=== PATIENT | female | born 1945 | race Caucasian/White ===

== ENCOUNTER 2017-02-25 08:30 | Inpatient (IN) | payer BC, MEDICARE ==
--- NOTE | 2017-02-25 09:36 | RAD ---
LEFT SHOULDER: Three views: HISTORY: Shoulder injury with shoulder pain. FINDINGS: There is abnormal mottled density involving the proximal humerus. This involves the humeral neck and proximal diaphysis. There is cortical disruption along the medial surface of the proximal humerus a t the humeral neck. Findings are concerning for an intraosseous infiltrative process such as neoplas m. Osteomyelitis is a consideration if there are clinical signs of infection. Some questionable mottled density involving the scapular neck. IMPRESSION: 1. Abnormal density involving the proximal left humerus with cortical disruption along the medial as pect. Neoplasm would be the primary consideration. 2. Correlation is made to a renal ultrasound exam from 2003 which described a left renal mass. This osseous finding would be considered a renal cell metastasis. Please correlate clinically and recomm end further workup as indicated. CODE T POS: CYNDY
[2017-02-25 09:46] LABS: #Eosinphils 0.1 thou/uL (0.0-0.7); #Lymphocytes 0.9 thou/uL (1.20-3.40); #Monocytes 0.6 thou/uL (0.11-0.59); #Neutrophils 6.1 thou/uL (1.40-6.50); %Basophils 0.3 % (0.0-1.0); %Eosinophils 1.8 % (0.0-10.0); %Lymphocytes 11.8 % (21.0-51.0); %Monocytes 7.4 % (0.0-10.0); Hematocrit 41.8 % (36.0-47.0); Mean Platelet Volume 6.9 fL (7.4-10.4); Red Blood Cell (RBC) Count 4.32 mill/uL (4.20-5.40); White Blood Cell (WBC) Count 7.8 thou/uL (4.8-10.8)
[2017-02-25 10:10] LABS: Lactic Acid - Sepsis 1.4 mmol/L (0.5-2.2)
[2017-02-25] MEDS ORDERED: Ondansetron HCl/PF 4 MG/2 ML Vial ONE (10:11)
[2017-02-25] MEDS ORDERED: Morphine 4 MG/ML VIAL ONE (10:11)
[2017-02-25 10:15] LABS: ALT (SGPT) 18 U/L (8-55); AST (SGOT) 26 U/L (5-34); Alkaline Phosphatase 86 U/L (40-150); Anion Gap 12 mmol/L (10-20); BUN (Urea Nitrogen) 18 mg/dL (9.8-20.1); Bilirubin, Total 0.3 mg/dL (0.2-1.2); Calc. Creatinine Clearance 0 mL/min (70-130); Calcium 10.8 mg/dL (7.8-10.44); Carbon Dioxide 24 mmol/L (23-31); Chloride 105 mmol/L (98-107); Estimated GFR-MDRD 54; Protein, Total 7.1 g/dL (6.0-8.3)
[2017-02-25 10:16] LABS: CK (CPK) 48 U/L (29-168)
[2017-02-25] MEDS ORDERED: Fentanyl 100 MCG/2 ML VIAL ONE ×2 (10:32→11:35)
[2017-02-25] MEDS ORDERED: Fentanyl 100 MCG/2 ML VIAL SLOW IVP PRN (12:39)
[2017-02-25] MEDS ORDERED: Ondansetron HCl/PF 4 MG/2 ML Vial IVP PRN ×2 (12:40→19:19)
[2017-02-25] MEDS ORDERED: Acetaminophen 325 MG TAB PO PRN (12:40)
[2017-02-25] MEDS ORDERED: Ondansetron ODT 4 MG TAB PO PRN ×2 (12:40→19:19)
[2017-02-25 12:41] VITALS: BMI 26.4
[2017-02-25] MEDS ORDERED: Sodium Chloride 0.9% 1,000 ML IV SCH (12:45)
[2017-02-25] MEDS ORDERED: Ketorolac Tromethamine 30 MG/ML VIAL IVP SCH (13:45)
[2017-02-25] MEDS ORDERED: Acetaminophen 500 MG TAB PO PRN (19:19)
[2017-02-25] MEDS: Ketorolac Tromethamine 30 MG/ML VIAL IVP SCH (20:05)
[2017-02-25] MEDS: Famotidine 20 MG TAB PO SCH (20:59)
[2017-02-25] MEDS: traMADol HCl 50 MG TAB PO PRN (23:32)
--- NOTE | 2017-02-26 00:06 | HP ---
DATE OF ADMISSION: 02/25/2017 PRIMARY CARE PROVIDER: Dr. Xin Breaux. CHIEF COMPLAINT: Left shoulder pain. HISTORY OF PRESENT ILLNESS: This is a 71-year-old female who presented to [facility] complaining of severe left shoulder pain with difficulty in movement, rotation in t he proximal left shoulder girdle and to the neck region. Patient states she initially noted some shania n in the left shoulder approximately 4 weeks prior to this evaluation while gardening and doing regul ar housework. Patient states there was intermittent worsening and improvement of left shoulder pain over the last 4 weeks taking aspirin for relief. Patient modified her activities, but noted increasi ng pain in the left shoulder. Patient states within the last 1-2 days, she lifted her arm overhead, hearing several pops in the shoulder region, and experiencing severe pain. Patient presented to [facility] for evaluation and patient was given pain medications as well as Neurontin, which patient to ok approximately 2 doses without relief. Patient denied any direct trauma or injury, swelling to the left upper extremity, chest pain, shortness of breath, or fever. Patient states she has some diffic ulty with small movements or lifting the shoulder or arm away from her body. Patient does give a sig nificant history of renal cell carcinoma, status post nephrectomy in 2003 with subsequent metastatic process in the left upper lobe with left upper lobectomy in 2007 at [facility]. Patient di d not take any specific chemotherapy regimen, as this was unavailable at the time of the diagnosis. Patient states she has been doing well, since the initial diagnosis and subsequent left upper lobecto my. Patient also reports the history of recent thyroid cyst and is slated for thyroidectomy within t he next week. Patient states she is right-hand dominant, but does use her extremities for computer a nd paperwork. In the emergency room, patient underwent general evaluation including plain radiograph s of the shoulder showing evidence of a proximal left humerus density concerning for neoplastic proce ss. Review of the radiographs show concern for possible pathological fracture. Patient received fen tanyl, intravenous fluids, and was transferred to the observation unit for evaluation. PAST MEDICAL HISTORY: Renal cell carcinoma. PAST SURGICAL HISTORY: 1. Status post nephrectomy. 2. Status post left upper lobectomy secondary to metastatic renal cell carcinoma in 2007. 3. Status post vaginal hysterectomy with bilateral salpingo-oophorectomy with anterior repair in 5. CURRENT MEDICATIONS: Multivitamin 1 tab p.o. daily. ALLERGIES: ERYTHROMYCIN, LEVOFLOXACIN, MORPHINE SULFATE, PENICILLIN, and PENTAZOCINE LACTATE. FAMILY HISTORY: Father with history of congestive heart failure. Mother with history of breast canc er and diagnosed in her 80s. One sister with multiple cancers, unknown type. One brother with histo ry of chronic lymphocytic leukemia secondary to Agent [place]. SOCIAL HISTORY: Patient resides in [place], [place]. 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 No current alcohol, tobacco, or illicit drug use. REVIEW OF SYSTEMS: The following complete review of systems was otherwise negative, except as stated per HPI: Constitutional: Weight loss or gain, ability to conduct usual activities. Skin: Rash, itching. Eyes: Double vision, pain. ENT/Mouth: Nose bleeding, neck stiffness, pain, tenderness. Cardiovascular: Palpitations, dyspnea on exertion, orthopnea. Respiratory: Shortness of breath, wheezing, cough, hemoptysis, fever, or night sweats. Gastrointestinal: Poor appetite, abdominal pain, heartburn, nausea, vomiting, constipation, or diarr hea. Genitourinary: Urgency, frequency, dysuria, nocturia. Musculoskeletal: Pain, swelling. Neurologic/Psychiatric: Anxiety, depression. Allergy/Immunologic: Skin rash, bleeding tendency. PHYSICAL EXAMINATION: VITAL SIGNS: Currently blood pressure 141/80, pulse 83, respiratory rate 18, temperature 98.6 degree s Fahrenheit, O2 saturation 95% on room air. GENERAL APPEARANCE: This is a 71-year-old female, alert and oriented x3, pleasant, in no a cute distress. HEENT: Pupils are equal, round, and reactive to light and accommodation. Extraocular muscles are in tact. No scleral icterus, no conjunctival injection. Nares patent. OP is clear. Teeth in good rep air. NECK: Supple. No cervical adenopathy. Positive for thyromegaly with large cyst in the right lobe o f the thyroid. Cervical spine with full active and passive range of motion. No meningeal signs appr eciated. No carotid bruits noted. CHEST: Lungs are clear to auscultation bilaterally. CARDIOVASCULAR: S1, S2 with 1-2/6 systolic ejection murmur lowest in the left upper sternal border. ABDOMEN: Rounded, soft, nontender, nondistended. Bowel sounds are positive in all four quadrants. No hepatosplenomegaly, no abdominal bruits, no rebound or guarding appreciated. EXTREMITIES: Warm and dry with fair turgor. No clubbing, cyanosis, or asymmetric edema appreciated. Left upper extremity with tenderness to palpation at the proximal humeral head. Decreased range of motion due to pain. Neurovascularly intact in the left upper extremity. Right hand dominant. NEUROLOGIC: Cranial nerves II through XII are grossly intact. No focal or lateralizing signs apprec iated. PERTINENT LABORATORY AND X-RAY FINDINGS: Basic metabolic profile within normal limits. Calcium 10.8 . LFTs within normal limits. CRP less than 0.5. Lactic acid level 1.4. CBC within normal limits. Three views of the left shoulder dated 02/25/2017 showed abnormal density in the proximal left humer us with cortical disruption concerning for a neoplastic process. ASSESSMENT AND PLAN: 1. Question of pathological fracture of the left proximal humerus. Patient will be observed in the medical unit. We will obtain MRI imaging of the left shoulder to further delineate potential neoplas tic process. We will consult Orthopedic Surgery service for evaluation and consideration of biopsy, given patient's history of renal cell carcinoma. Continue pain control with Toradol 30 mg IV q.6 torey rs, tramadol 50 mg p.o. every 6 hours p.r.n. pain. Shoulder sling for comfort. 2. History of renal cell carcinoma with lung metastasis, status post surgical excision in 2004 and 2 008. See #1 above. 3. Thyromegaly. Patient with scheduled thyroidectomy in the next week per ENT recommendations. 4. Prophylaxis. Sequential compression devices while in bed. Pepcid 20 mg p.o. b.i.d. 5. Code status is FULL. Surrogate medical decision maker is patient's daughter.
[2017-02-26] MEDS: traMADol HCl 50 MG TAB PO PRN ×2 (03:33→08:27)
[2017-02-26] MEDS: Ketorolac Tromethamine 30 MG/ML VIAL IVP SCH ×4 (05:49→23:50)
[2017-02-26] MEDS: Famotidine 20 MG TAB PO SCH ×2 (08:27→21:49)
[2017-02-26] MEDS ORDERED: Morphine 4 MG/ML VIAL IV PRN ×2 (10:06→10:07)
--- NOTE | 2017-02-26 12:29 | MRI ---
MRI OF THE LEFT SHOULDER WITH AND WITHOUT CONTRAST: Date: 02/26/17 INDICATION: Left proximal humeral region lesion with pathologic fracture. COMPARISON: Left shoulder radiograph dated 02/25/17. FINDINGS: There is an infiltrative, heterogeneously enhancing lesion seen involving the proximal humeral metadi aphyseal region with associated obliquely oriented, minimally displaced, proximal humeral metadiaphys eal fracture. This is highly suspicious for metastatic disease. No additional suspicious osseous lesi on is identified. The rotator cuff is intact. The visualized biceps anchor and biceps tendon appears within normal limi ts. The biceps tendon is normally located. No paralabral cyst is evident. No arlette muscular atrophy i s noted. There is some increased T2 signal seen involving the latissimus dorsi muscle. There is some increased T2 signal within the proximal aspect of the long head of the triceps muscle. IMPRESSION: Infiltrative metastatic lesion of the proximal humeral metadiaphyseal region with a minimally displac ed proximal humeral pathologic fracture. Mild strain of the left latissimus dorsi musculature, as wel l as portions of the long head of the triceps. POS: CYNDY
--- NOTE | 2017-02-26 12:33 | PDOC.PN ---
- Subjective Encounter Start Date: 02/26/17 Encounter Start Time: 12:00 Subjective: LEFT UE PAIN, SOME NAUSEA - Objective Resuscitation Status: Resuscitation Status FULL:Full Resuscitation MAR Reviewed: Yes Vital Signs & Weight: Vital Signs (12 hours) Temp Pulse Resp BP BP Pulse Ox 02/26/17 12:08 97.5 F L 70 20 168/80 H 94 L 02/26/17 07:46 97.6 F 59 L 16 138/69 96 02/26/17 07:20 97.6 F 59 L 16 02/26/17 04:00 98.4 F 64 14 118/61 97 Weight Weight 163 lb 6.4 oz I&O: 02/25/17 02/26/17 02/27/17 06:59 06:59 06:59 Intake Total 680 302 Output Total 250 Balance 430 302 Result Diagrams: 02/25/17 09:30 02/25/17 09:30 Radiology Reviewed by me: Yes Phys Exam - Physical Examination Constitutional: NAD HEENT: PERRLA, moist MMs, sclera anicteric Neck: supple, full ROM Respiratory: no wheezing, no rhonchi, clear to auscultation bilateral Cardiovascular: RRR AMADO Gastrointestinal: soft, non-tender, no distention Musculoskeletal: no edema, pulses present Neurological: non-focal, normal sensation, moves all 4 limbs Psychiatric: normal affect, A&O x 3 Skin: no rash Dx/Plan (1) Left humeral fracture Code(s): S42.302A - UNSP FRACTURE OF SHAFT OF HUMERUS, LEFT ARM, INIT Status: Acute (2) Pathologic humeral fracture Code(s): M84.429A - PATHOLOGICAL FRACTURE, UNSP HUMERUS, INIT FOR FX Status: Acute (3) Renal cell carcinoma Code(s): C64.9 - MALIGNANT NEOPLASM OF UNSP KIDNEY, EXCEPT RENAL PELVIS Status : Chronic - Plan cont current plan of care, PT/OT CONTINUE PAIN CONTROL, ORTHO CONSULT PENDING FOR POSSIBLE BX . -: ONCOLOGY WILL CONSULTED PENDING ORTHO RECCS. * .
[2017-02-26] MEDS ORDERED: Promethazine HCl 25 MG/ML VIAL IM/IV PRN (16:07)
--- NOTE | 2017-02-26 23:00 | CON ---
DATE OF CONSULTATION: 02/26/2017 CHIEF COMPLAINT: Left arm pain. HISTORY OF PRESENT ILLNESS: Ms. Waterman is a 71-year-old female, who has developed arm pain over the las t 2 weeks. She has attributed this to overuse. She went to an Urgent Care yesterday and was thought to have rotator cuff strain. She had an acute worsening after lifting her arm. She presented to [facility] emergency department and was found to have a pathologic fracture through a metastatic lesion of the proximal humerus. She has been admitted to the hospital for further workup. She has a history of r enal cell carcinoma. She has had a lobectomy for metastatic disease. Of note, she has had a thyroid nodule and cyst recently diagnosed and she was scheduled for thyroidectomy next week. Her left arm is having pain and weakness. No radiating symptoms. No specific injury. 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 PAST MEDICAL HISTORY: Renal cell carcinoma. PAST SURGICAL HISTORY: 1. Nephrectomy. 2. Upper left lobectomy secondary to metastatic renal cell carcinoma. 3. Vaginal hysterectomy. MEDICATIONS: Multivitamin. ALLERGIES: ERYTHROMYCIN, LEVOFLOXACIN, MORPHINE AND PENICILLIN. FAMILY MEDICAL HISTORY: Congestive heart failure and siblings with cancer. SOCIAL HISTORY: The patient is a professor. She denies tobacco, alcohol, or drug use. REVIEW OF SYSTEMS: Positive for left shoulder pain and nausea. Otherwise, negative for chest pain, shortness of breath and remainder of 10 point review of systems. IMAGES: MRI of the left shoulder as well as left shoulder x-rays are reviewed, which demonstrate a l arge lesion of the metaphysis of the proximal humerus with pathologic fracture. This is consistent w ith a metastatic lesion. PHYSICAL EXAMINATION: VITAL SIGNS: Temperature is 97.6, pulse is 68, respiratory rate 20, oxygen saturation 100, blood pre ssure is 160/77. GENERAL: The patient is alert, sitting upright in no apparent distress. RESPIRATORY: Breathing comfortably. ABDOMEN: Soft, nontender, nondistended. MUSCULOSKELETAL: The patient's left upper extremity has pain with motion. SKIN: Intact. She has weakness in the rotator cuff. There is some mild swelling of the left arm. She has a palpable radial pulse. IMPRESSION: Suspected left metastatic lesion of the proximal humerus with pathologic fracture, most likely diagnosis is metastatic renal cell carcinoma given her history. PLAN: At this point, I had a long discussion with the patient regarding treatment options. We will plan for surgical intervention to include open biopsy of the lesion for a pathological diagnosis. We can then proceed with intramedullary nail fixation of the humerus to span the pathologic fracture an d provide pain relief and hopefully healing of the fracture. She is aware of risks and benefits and would like to proceed with this for pain relief and to improve quality of life. She is being followe d by the Internal Medicine doctors as well as the oncologist. We will proceed with surgery tomorrow. She should be n.p.o. at midnight.
[2017-02-27] MEDS: traMADol HCl 50 MG TAB PO PRN (03:43)
[2017-02-27] MEDS: Ketorolac Tromethamine 30 MG/ML VIAL IVP SCH ×3 (07:10→23:55)
[2017-02-27] MEDS: Famotidine 20 MG TAB PO SCH ×2 (08:25→20:54)
--- NOTE | 2017-02-27 09:43 | PDOC.PN ---
- Subjective Encounter Start Date: 02/27/17 Encounter Start Time: 09:00 Subjective: FEELING MUCH BETTER WITH PAIN CONTROL - Objective Resuscitation Status: Resuscitation Status FULL:Full Resuscitation MAR Reviewed: Yes Vital Signs & Weight: Vital Signs (12 hours) Temp Pulse Resp BP Pulse Ox 02/27/17 08:09 98.3 F 67 16 02/27/17 07:58 98.3 F 67 16 111/61 97 02/27/17 03:43 97.8 F 61 12 124/71 99 02/26/17 21:42 97.5 F L 63 16 133/71 98 Weight Weight 163 lb 6.4 oz I&O: 02/26/17 02/27/17 02/28/17 06:59 06:59 06:59 Intake Total 680 845 1 Output Total 250 Balance 430 845 1 Result Diagrams: 02/25/17 09:30 02/25/17 09:30 Phys Exam - Physical Examination HEENT: PERRLA, moist MMs, sclera anicteric Neck: no nodes, supple, full ROM Respiratory: no wheezing, no rhonchi, clear to auscultation bilateral Cardiovascular: RRR, no significant murmur Gastrointestinal: soft, non-tender Musculoskeletal: no edema, pulses present Neurological: non-focal, moves all 4 limbs Psychiatric: normal affect, A&O x 3 Skin: no rash Dx/Plan (1) Left humeral fracture Code(s): S42.302A - UNSP FRACTURE OF SHAFT OF HUMERUS, LEFT ARM, INIT Status: Acute (2) Pathologic humeral fracture Code(s): M84.429A - PATHOLOGICAL FRACTURE, UNSP HUMERUS, INIT FOR FX Status: Acute (3) Renal cell carcinoma Code(s): C64.9 - MALIGNANT NEOPLASM OF UNSP KIDNEY, EXCEPT RENAL PELVIS Status : Chronic - Plan cont current plan of care Ortho procedure today. will consult Dr. Jordan for further onc. tx * .
[2017-02-27] MEDS ORDERED: Bupivacaine HCl 0.5%/Epinephrine 1:200,000/PF 30 ml Vial ONE (13:49)
[2017-02-27] MEDS ORDERED: Clindamycin/D5W 900 MG in Premix Bag 1 BAG IVPB SCH (14:00)
[2017-02-27] MEDS ORDERED: Clindamycin/D5W 900 mg/50 ml Premix Bag ONE (14:26)
[2017-02-27] MEDS ORDERED: Ketorolac Tromethamine 30 MG/ML VIAL ONE (14:27)
[2017-02-27] MEDS ORDERED: PHENYLEPHRINE-NS 100 MCG/ML 10 ML SYRINGE ONE (15:06)
[2017-02-27] MEDS ORDERED: Dexamethasone 20 MG/5 ML VIAL ONE (15:06)
[2017-02-27] MEDS ORDERED: ePHEDrine/0.9% NaCl/PF SYRINGE 50 mg/10 ml ONE (15:06)
[2017-02-27] MEDS ORDERED: Propofol 200 MG/20 ML VIAL ONE (15:06)
[2017-02-27] MEDS ORDERED: diphenhydrAMINE 50 MG/ML VIAL ONE (15:06)
[2017-02-27] MEDS ORDERED: Lidocaine 1% PF 5 ML VIAL ONE (15:06)
[2017-02-27] MEDS ORDERED: Metoclopramide HCl 10 MG/2 ML VIAL ONE (15:06)
[2017-02-27] MEDS ORDERED: Glycopyrrolate 0.2 MG/ML 5 ML SYRINGE ONE (15:06)
[2017-02-27] MEDS ORDERED: Ondansetron HCl/PF 4 MG/2 ML Vial ONE (15:06)
[2017-02-27] MEDS ORDERED: Lidocaine 1% (PF) 30 ML VIAL ONE (15:09)
[2017-02-27] MEDS ORDERED: Fentanyl 100 MCG/2 ML VIAL ONE ×2 (15:09→15:33)
[2017-02-27] MEDS ORDERED: Midazolam HCl 2 mg/2 ml Vial ONE (15:09)
[2017-02-27 18:26] LABS: Mean Platelet Volume 6.5 fL (7.4-10.4); Red Blood Cell (RBC) Count 3.08 mill/uL (4.20-5.40); White Blood Cell (WBC) Count 12.1 thou/uL (4.8-10.8)
--- NOTE | 2017-02-27 19:40 | RAD ---
FOUR INTRAOPERATIVE VIEWS LEFT HUMERUS: 02/27/17 HISTORY: Proximal left humeral fracture, intramedullary nailing. Four intraoperative views left humerus is obtained. Images demonstrate placement of an intramedullary nail across the fracture in the proximal left humerus. Proximal and distal fracture fragments are in good anatomic alignment. IMPRESSION: Open reduction internal fixation of a proximal left humeral fracture. POS: [facility]
[2017-02-27] MEDS: Clindamycin/D5W 900 MG in Premix Bag 1 BAG IVPB SCH (20:55)
[2017-02-27] MEDS ORDERED: Sodium Chloride 0.9% 500 ML IV SCH (22:00)
--- NOTE | 2017-02-27 23:36 | OP ---
DATE OF OPERATION: 02/27/2017 OPERATION: Intramedullary nail fixation of left humerus fracture. PREOPERATIVE DIAGNOSIS: Left pathologic humerus fracture from metastatic tumor. POSTOPERATIVE DIAGNOSIS: Left pathologic humerus fracture from metastatic tumor. COMPLICATIONS: None. ESTIMATED BLOOD LOSS: 600 mL. SURGEON: Zane Conti M.D. COST CONTROL ANALYST: Eyal Gasca PA-C. IMPLANTS: Synthes humeral nail size 7-mm x 260-mm. INDICATIONS: Ms. Waterman is a 71-year-old female who has a history of renal cell carcinoma. She has had metastatic disease in the past. She has been found to have a cancerous lesion of the proximal humer us. She has been indicated for biopsy as well as intramedullary nail fixation of the lesion to esther re stability and provide a pathologic diagnosis. Risks have been reviewed. She has elected to proce ed with the operation. DESCRIPTION OF PROCEDURE: Ms. Waterman was identified in the preoperative holding area. Her correct extr emity was marked. She was carried to the operating room. She was positioned supine. General anesth esia was induced. A multidisciplinary timeout was performed. The left upper extremity was prepped a nd draped in sterile fashion. We placed the patient in a gentle beach chair position. We then made an incision over the upper aspe ct of the shoulder once prepped and draped. We dissected down through the subcutaneous tissues to th e deltoid, which was split. We spread the deltoid and then evaluated the underlying rotator cuff, th e rotator cuff was also a longitudinal split. This allowed us direct access to the tuberosity of the shoulder. We inserted our guidewire and checked this with x-rays intraoperatively. We then overrea med our guidewire. Next, we obtained a curet and obtained several samples of tissue from the tumor s ite. These were sent for pathological diagnosis. We thoroughly irrigated the wound and the humerus as well as complete curetting the tumor. At this point, we passed a 7-mm x 260-mm nail from proximal to distal over a wire. This was checked again with x-rays confirming position. Finally, we placed our helical blade into the humeral head. This was locked in a static position. We then placed a dis marline cross lock screw. This is completed the operation. We took final x-ray images. We thoroughly i rrigated the wounds. We then closed the rotator cuff split followed by the deltoid split and then th e subcutaneous tissue and skin. A sterile dressing and a sling was placed. The patient was taken to recovery room in good condition without complication.
[2017-02-28] MEDS: Ketorolac Tromethamine 30 MG/ML VIAL IVP SCH (05:23)
[2017-02-28] MEDS: Clindamycin/D5W 900 MG in Premix Bag 1 BAG IVPB SCH (05:24)
[2017-02-28 05:31] LABS: #Lymphocytes 0.6 thou/uL (1.20-3.40); #Monocytes 0.7 thou/uL (0.11-0.59); %Eosinophils 0.2 % (0.0-10.0); %Lymphocytes 6.3 % (21.0-51.0); %Monocytes 7.6 % (0.0-10.0); Hematocrit 26.9 % (36.0-47.0); Mean Platelet Volume 7.1 fL (7.4-10.4); White Blood Cell (WBC) Count 9.3 thou/uL (4.8-10.8)
[2017-02-28 05:46] LABS: Anion Gap 11 mmol/L (10-20); BUN (Urea Nitrogen) 21 mg/dL (9.8-20.1); Calc. Creatinine Clearance 58 mL/min (70-130); Carbon Dioxide 23 mmol/L (23-31); Chloride 102 mmol/L (98-107); Estimated GFR-MDRD 52; Magnesium 2.1 mg/dL (1.6-2.6)
[2017-02-28] MEDS: Famotidine 20 MG TAB PO SCH (09:14)
--- NOTE | 2017-02-28 12:57 | CON ---
DATE OF CONSULTATION: 02/28/2017 REASON FOR CONSULTATION: Renal cell carcinoma. HISTORY OF PRESENT ILLNESS: Ms. Lua is a pleasant 71-year-old female who presented to the emergency room with severe left shoulder pain that started approximately 4 weeks ago. She had imaging perform ed which showed a pathological fracture of the proximal left humerus. She underwent surgical repair and biopsy yesterday. She does have a history of renal cell carcinoma, originally diagnosed in 2003. She had a nephrectomy at that time. In 2007, she had metastatic disease of the left upper lobe. S he underwent a lobectomy. She has not had any chemotherapy. Most recently she has goiter. She had a biopsy which showed benign cyst. She is due for a thyroidectomy next week. She has no other compl aints. PAST MEDICAL HISTORY: 1. Renal cell carcinoma. 2. Thyroid cyst. PAST SURGICAL HISTORY: 1. Nephrectomy. 2. Left upper lobectomy. 3. Hysterectomy with bilateral salpingo-oophorectomy. ALLERGIES: ERYTHROMYCIN, LEVOFLOXACIN, MORPHINE, PENICILLIN and PENTAZOCINE LACTATE. CURRENT MEDICATIONS: Multivitamin daily, aspirin p.r.n. pain. FAMILY HISTORY: Mother had breast cancer in the 80s. She has had another sister with an unknown typ e of cancer. Her brother has a history of CLL with exposure to [place]. SOCIAL HISTORY: Single. She is a professor at [employer]. No alcohol, tobacco or illicit drug u se. REVIEW OF SYSTEMS: CONSTITUTIONAL: No fever, chills, night sweats, recent weight loss or gain. EYES: No blurred or double vision. ENT: No pain, hoarseness, sore throat, or dysphagia. CARDIOVASCULAR: No chest pain, palpitations or syncope. RESPIRATORY: No shortness breath, dyspnea on exertion or orthopnea. GASTROINTESTINAL: No nausea, vomiting, diarrhea, constipation, abdominal pain. GENITOURINARY: No dysuria or hematuria. MUSCULOSKELETAL: Positive for left shoulder pain. SKIN: No rash or pruritus. HEMATOLOGIC: No bleeding, bruising or clotting. NEUROLOGIC: No weakness, headache, numbness, tingling or seizure activity. PSYCHIATRIC: No anxiety or depression. PHYSICAL EXAMINATION: VITAL SIGNS: Temperature 98.5, pulse is 82, respiratory rate 20, BP is 91/57. She is 99% on room ai r. GENERAL: Well-developed, well-nourished female in no acute distress. HEENT: Normocephalic, atraumatic. Pupils equal and reactive to light. NECK: She has goiter with palpable thyroid. CARDIOVASCULAR: Regular rate and rhythm. LUNGS: Clear. ABDOMEN: Soft, nontender, bowel sounds are positive. EXTREMITIES: She has a sling on for left shoulder with a dressing in place. SKIN: There is no rash. HEMATOLOGIC: No petechia or purpura. NEUROLOGICAL: Nonfocal. PSYCHIATRIC: The patient is alert and oriented and appropriate. PERTINENT LABORATORY AND X-RAYS: Current WBCs are 9.3, hemoglobin 9.4, hematocrit 26.9, platelet cou nt is 178,000, 86% neutrophils, 6% lymphocytes. Sodium is 131, potassium 4.9, chloride 102, CO2 is 2 3, BUN is 21, creatinine 1.05. Lactic acid is 1.9, calcium 9.0, magnesium 2.1, total bilirubin is 0. 3, AST is 26, ALT is 18, alkaline phosphatase 86, serum total protein 7.1, albumin 4.1, globulin 3. Radiology per HPI. IMPRESSION: 1. A pathological fracture of the left humerus status post intramedullary nailing. 2. Renal cell carcinoma. 3. Thyroid goiter. PLAN: The patient will follow up with us in the outpatient setting. She will see Dr. Jordan on . She will obtain records from [facility]. She is a candidate for chemotherapy/ immunothera py. She will need further staging as an outpatient. She can be discharged home from our standpoint. She will proceed with her thyroidectomy next week and we will contact Dr. Moon for the resul ts of that biopsy. Thank you for the consult. We will help take care of this leeanna lady.
[2017-02-28 13:03] VITALS: BP 98/63; TEMP 98.1
--- NOTE | 2017-02-28 13:10 | DIS ---
DATE OF ADMISSION: 02/25/2017 DATE OF DISCHARGE: 02/28/2017 PRIMARY DISCHARGE DIAGNOSIS: Pathologic left humeral fracture. SECONDARY DISCHARGE DIAGNOSIS: History of renal cell carcinoma. HOSPITAL COURSE: The patient is a 71-year-old female that presented to [facility] complaining of sev ere left shoulder pain. The patient has a history of renal cell carcinoma and it was felt that she h ad suffered a pathologic fracture of the left humerus. The Orthopedic Service was consulted, the pat ient was taken to the OR, 02/27/2017, where nail insertion was performed. Biopsy was also taken of t he bone at the site. The Oncology service was consulted and the patient will see Dr. Jordan as an o utpatient after discharge. The patient tolerated the procedure well and was deemed stable for discha rge. DISCHARGE DISPOSITION: To home. DISCHARGE DIET: Regular. DISCHARGE ACTIVITY: As tolerated. DISCHARGE MEDICATIONS: Resume home meds. PHYSICAL EXAMINATION: GENERAL: She is in no acute distress. HEAD: Normocephalic, atraumatic. EYES: PERRL. Extraocular muscles intact. CHEST: Clear to auscultation bilaterally. CARDIAC: Regular rate and rhythm. No murmurs, regurg or gallops. ABDOMEN: Nontender, nondistended. MUSCULOSKELETAL: The patient has a decrease range of motion of left upper extremity and it is in a s ling. EXTREMITIES: No clubbing, cyanosis or edema. NEUROLOGICAL: Full range of motion of lower extremities, right upper extremity. She is alert and or iented x3. FOLLOWUP: 1. The patient is to follow up with Dr. Cheryl Jordan, 03/12/2017. 2. The patient is to follow up with her PCP within 3 days. 3. The patient is to follow up with Dr. Conti in [facility] in 10 days.
== END 2017-02-28 16:13 | disposition home or self-care (01) | DRG 478 ==
LOC: ERS 08:30 → OBSVTOIN 11:07 → 2SW 11:07 → SURG B 02-27 11:54
PROVIDERS: ADMIT Family Medicine; ATTEND Family Medicine
PROC: 0PHD06Z Insertion of Intramedullary Internal Fixation Device into Left Humeral Head, Open Approach (ICD-10-PCS; principal; 2017-02-27)
PROC: 3E0T3BZ Introduction of Anesthetic Agent into Peripheral Nerves and Plexi, Percutaneous Approach (ICD-10-PCS; 2017-02-27)
PROC: 0PBD0ZX Excision of Left Humeral Head, Open Approach, Diagnostic (ICD-10-PCS; 2017-02-27)
DX: M84.522A Pathological fracture in neoplastic disease, left humerus, initial encounter for fracture (principal); C64.9 Malignant neoplasm of unspecified kidney, except renal pelvis; C79.51 Secondary malignant neoplasm of bone; E04.9 Nontoxic goiter, unspecified
CPT/HCPCS: 36415; 76001; 80048; 80053; 82550; 83605; 83735; 85025; 85027; 85652; 86140; 87040; 88307; 96361; 96374; 96375; 96376; A4216; C1713; C1769; G8978-GP-CI; G8979-GP-CI; G8980-GP-CI; J0131; J0670; J1100; J1200; J1885; J2001; J2250; J2270; J2405; J2550; J2704; J2765; J3010; J3490; Q0162

== ENCOUNTER 2017-05-21 08:39 | Outpatient (CLI) | payer BC ==
[2017-05-21] MEDS ORDERED: Iopamidol 370 76% 100 ML VIAL ONE (10:00)
--- NOTE | 2017-05-21 12:07 | CT ---
CT OF CHEST PERFORMED WITH INTRAVENOUS CONTRAST ENHANCEMENT: History: Renal cell carcinoma with left nephrectomy and history of metastatic disease to lung. Comparison: 03-21-17 CT examination that was done at [facility]. FINDINGS: The bilateral pulmonary nodules appear stable. I do not see any new nodules. The one exception is a l eft parahilar nodular density which could actually represent a parahilar node, axial image 21, measur es approximately 17-18 mm on today's examination as compared to 14 mm on the previous study. The diff erence may be related to slight differences in slice position. The other nodules are stable. Specific ally, a right lower lobe pulmonary nodule measuring 9 mm in size is stable and two tiny 4 mm nodules in the right lung base are also stable. The pleural based area within the lingula measures 7 mm, also stable. Liver once again shows subcentimeter hypodensities, stable in appearance, too small to characterize. There is also a hypodensity within the spleen, which is probably a splenic cyst. It is stable in size at approximately 12 mm. The gallbladder is slightly distended. It has a somewhat unusual appearance to some partially calcifi ed soft tissue density. This may represent a combination of stones with tumefactive type sludge causi ng this appearance. Gallbladder masses are not excluded. It may be helpful to obtained ultrasound. It is difficult to say whether these enhance or are just of increased attenuation as I have no precontr ast study for comparison. Post-operative changes of the left humerus are again noted related to destructive bony change with in tramedullary angie in place. No new bony lesions seen. IMPRESSION: 1. Stable overall examination. Pulmonary nodules are all felt to be stable. The one density that may be minimally increased in size is the left parahilar density seen along the left side of the mediasti num, perhaps minimally increased in size, although the differences may just be related to technique, measuring 14-15 mm on the prior study and now measures 18 mm. 2. Evidence of post op changes with some clips within the mediastinum. 3. Stable hyperdensities within the liver and spleen. 4. Unusual appearance to the intraluminal contents of the gallbladder. There are some areas which are calcified. Some of this appears to represent soft tissue density masses. This could represent tumef active sludge, but the possibility of gallbladder mass is difficult to exclude. It is difficult for m e to say whether there is any enhancement. It is of increased attenuation but this may be a baseline appearance for this. I have no precontrast study. It would probably be helpful to obtain a gallbladde r ultrasound for assessment to see if any of these areas do show vascularity. POS: CY[facility]
== END 2017-05-21 08:40 | disposition home or self-care (01) ==
LOC: CT 08:39
PROVIDERS: ATTEND Internal Medicine Hematology & Oncology
DX: C64.2 Malignant neoplasm of left kidney, except renal pelvis (principal); R91.8 Other nonspecific abnormal finding of lung field; Z98.890 Other specified postprocedural states; K82.9 Disease of gallbladder, unspecified; J98.4 Other disorders of lung
CPT/HCPCS: 71260

== ENCOUNTER 2017-09-22 09:11 | Outpatient (CLI) | payer BC, MEDICARE ==
--- NOTE | 2017-09-22 11:47 | CT ---
CT CHEST WITH IV CONTRAST: CT ABDOMEN AND PELVIS WITH IV AND ORAL CONTRAST: HISTORY: Left kidney cancer. Lung masses. Restaging. COMPARISON: 05/21/2017 FINDINGS: Multiple small, noncalcified, well circumscribed nodules within each lung are again demonstrated. Of the largest, the 0.9 cm nodule at the medial aspect of the right upper lobe, the 1.8 cm left upper l obe nodule against the mediastinum, and the 1.2 cm nodule at the left lower lobe are stable. The ove rall size, appearance, and number are not changed. No new masses are evident. No pleural fluid or m ediastinal adenopathy. Postoperative changes of the mediastinum are evident. Tiny cysts within the liver are stable. The hyperdense stones and heterogeneously hyperdense material throughout the gallb ladder have not significantly changed. The left kidney is surgically absent. No enlarged lymph node s are apparent within the retroperitoneum. There is calcification in the arterial structures. The u rinary bladder is unremarkable. The inferior most images show intramuscular lipoma of the right pelv ic floor musculature. IMPRESSION: 1. Multiple noncalcified bilateral pulmonary nodules are stable. No new lung masses. 2. Status post left nephrectomy. 3. Hyperdense abnormalities within the gallbladder are not significantly changed. Given the noncalc ified, hyperdense appearance, however, further evaluation is warranted regarding the possibility of s ludge balls versus soft tissue density mass. Please consider right upper quadrant sonogram for Doppl er evaluation of the gallbladder abnormalities. Internal vascularity would indicate a neoplastic pro cess. POS: CYNDY
--- NOTE | 2017-09-22 14:21 | NM ---
RADIONUCLIDE BONE SCAN: HISTORY: Left kidney cancer. Prior nephrectomy. Restaging. COMPARISON: Study from [facility] on 03/21/2017. FINDINGS: Heterogeneously increased uptake involving the proximal left humerus and the distal left humeral shaf t is less intense than on the prior study. Heterogeneous uptake of the lower lumbar spine, with the appearance of degenerative changes, is stable. Heterogeneous uptake at the feet is also stable and l ikely related to degenerative changes. No new areas of abnormal uptake are evident. IMPRESSION: Postoperative changes, left humerus, are less intense than on the prior study. Other degenerative ty pe findings are stable. No new bone lesions are evident. POS: CYNDY
== END 2017-09-22 09:12 | disposition home or self-care (01) ==
LOC: CT 09:11
PROVIDERS: ATTEND Internal Medicine Hematology & Oncology
DX: C64.2 Malignant neoplasm of left kidney, except renal pelvis (principal); R91.8 Other nonspecific abnormal finding of lung field; R93.3 Abnormal findings on diagnostic imaging of other parts of digestive tract; Z90.5 Acquired absence of kidney; Z98.890 Other specified postprocedural states
CPT/HCPCS: 71260; 74177; 78306; A9503

== ENCOUNTER 2018-01-27 08:26 | Outpatient (CLI) | payer MEDICARE ==
--- NOTE | 2018-01-27 11:22 | CT ---
CT CHEST WITH CONTRAST: HISTORY: Left renal cell cancer with pulmonary nodules. COMPARISON: 09/22/2017 TECHNIQUE: Multiple contiguous axial images were obtained in a CT of the chest with contrast. Coronal reformats were performed. FINDINGS: There are numerous scattered pulmonary nodules throughout the lungs. There are multiple small, subce ntimeter nodules in the right lower lobe, which do not appear to have changed in size. However, some of the larger nodules in the lungs appear to have increased in size. There is a nodule along the me diastinum, in the right upper lobe, which now measures 1.1 cm in size. Previously this measured 9 mm in size. There is a nodule at the left aspect of the hilar region, which now measures 1.9 cm in siz e and previously measured 1.8 cm in size. A nodule adjacent to the right minor fissure, in the right lower lobe, on image 68 of 122, measures 13 mm in size, where it previously measured 9 mm in size. A nodule in the left lower lobe, on image 76 of 122, measures 1.4 cm in size, where it previously anita sured 1.2 cm in size. No definitely new pulmonary nodules are identified. The heart is normal in size without focal cardiac abnormality. No hilar or mediastinal lymphadenopat hy is appreciated. The chest wall soft tissues are unremarkable. Degenerative changes are seen in the spine. No suspic ious soft tissue lesions are identified. There appear to be multiple enhancing masses within the gallbladder. These are nonspecific. The lef t kidney has been removed. There are subcentimeter hypodensities in the liver, which are too small t o definitely characterize but likely represent cysts. A hypodensity in the spleen likely represents a cyst. There is a 1.3 cm enhancing mass along the posterior aspect of the right kidney. IMPRESSION: 1. Enlarging pulmonary nodules may represent progression of metastatic disease. 2. Enhancing masses in the gallbladder are nonspecific. 3. There appears to be a suspicious right renal mass, measuring 1.4 cm in size. 4. Hepatic and splenic cysts. CODE T POS: CYNDY
[2018-01-27] MEDS ORDERED: ISOVUE-370 76%-LOCM 1 ML ONE (13:20)
== END 2018-01-27 08:27 | disposition home or self-care (01) ==
LOC: BICCT 08:26
PROVIDERS: ATTEND Internal Medicine Hematology & Oncology
DX: C64.2 Malignant neoplasm of left kidney, except renal pelvis (principal); R91.8 Other nonspecific abnormal finding of lung field; D73.4 Cyst of spleen; K82.8 Other specified diseases of gallbladder; K76.89 Other specified diseases of liver
CPT/HCPCS: 71260; 82565

== ENCOUNTER 2018-04-29 09:42 | Outpatient (CLI) | payer MEDICARE ==
--- NOTE | 2018-04-29 12:41 | CT ---
CT THORAX WITH IV CONTRAST: CT ABDOMEN AND PELVIS WITH IV CONTRAST: 04/29/2018 HISTORY: Renal cell carcinoma, post left nephrectomy. This is a follow-up evaluation. The patient has metast atic renal cell carcinoma. COMPARISON: 09/22/2017 FINDINGS: THORAX: Surgical clips are seen within the subcarinal region and in the left paramediastinal and lef t hilar region, stable from prior exam. There are multiple bilateral pulmonary nodules. The largest pulmonary nodule, in the left upper lobe , adjacent to the mediastinum, measures 2.2 cm in maximal dimensions, and previously measured 1.8 cm. The largest pulmonary nodule in the medial anterior right upper lobe, adjacent to the mediastinum, measures 1.3 cm and previously measured 1.1 cm. Multiple additional subcentimeter pulmonary nodules are seen within the lungs bilaterally. There is a large left lower lobe pulmonary nodule, measuring 1.2 cm, which is similar in size to the prior exam. No definite new pulmonary nodule is visualized. No mediastinal, hilar, or axillary lymphadenopathy is seen. The thyroid gland is not visualized and may be surgically absent. No lytic or sclerotic osseous lesions are seen. There is partial visualization of post surgical almeida ges of the proximal left humerus. ABDOMEN AND PELVIS: Again noted are multiple enhancing masses within the gallbladder with associated calcifications. One of the presumed enhancing lesions within the region of the fundus of the gallbl adder does measure slightly larger in size, measuring 1.9 cm, and previously measured 1.6 cm. A neop lastic process involving the gallbladder should be considered. Multiple subcentimeter, yzc-zxyrn-ph-characterize, hypodense lesions are again seen in each lobe of t he liver. While these findings are likely attributable to multiple tiny cysts, given the multiplicit y, cystic metastatic lesions cannot be entirely excluded. Post surgical changes related to left nephrectomy and probable left adrenalectomy are noted, although the left adrenal gland may be very small in size with linear calcifications present. There are subcentimeter, bvp-yboyt-mm-characterize, hypodense lesions involving the right kidney. Ho wever, there are also small, heterogeneous masses involving the posteromedial aspect of the mid porti on and inferior pole right kidney, measuring 1.6 cm and 1.5 cm, respectively. The mass in the mid po rtion right kidney on prior study on 09/22/2017 measured 1.1 cm. These lesions are worrisome for courtney al cell carcinomas. There is also an increased density lesion at the medial aspect of the superior p ole right kidney, which cannot be further characterized without pre-contrast imaging. A hypodense lesion at the medial aspect of the spleen is again present and also seen on prior exams. A subcentimeter hypodense lesion at the more posteromedial aspect body of the spleen is also again p resent. There is an enhancing lesion seen within the region of the neck of the pancreas, measuring 2.6 cm, al so present on prior exam, with an additional slightly heterogeneous mass, although this mass appears more isodense with the proximal body of the pancreas. Masses were better visualized on CT thorax on 05/21/2017. The right adrenal gland and urinary bladder, as well as the opacified small bowel, demonstrate a norm al CT appearance. Mesh material is seen along the anterior abdominal wall. There is no lymphadenopathy, free fluid, or fluid collection seen in the abdomen or pelvis. There is evidence of a prior hysterectomy. Degenerative changes are noted in the spine, with bilateral hip osteoarthritis. A sclerotic lesion i n the right femoral neck is again seen, demonstrating characteristics more compatible with a bone isl and. There is a lipoma again seen within the abductor musculature of the right pelvis. IMPRESSION: 1. Metastatic disease with multiple bilateral pulmonary nodules, which are stable in number, but oscar e of the pulmonary nodules are larger in size, as described above. 2. Heterogeneous lesions within the right kidney, which are worrisome for renal cell carcinoma. 3. Masses within the region of the neck, as well as body of the pancreas. Neoplastic process is a p ossibility. 4. Abnormal appearance of the gallbladder, with suggestion of enhancing lesions within the gallbladd er lumen, with associated calcifications. A neoplastic process is diagnosis of exclusion. 5. Stable hypodense lesions within the liver and spleen, which, statistically, probably represent cy sts, although metastatic lesions cannot be entirely excluded. 6. The above findings were discussed with Dr. Jordan on 04/29/2018 at 1129 hours. CODE CR POS: [facility]
--- NOTE | 2018-04-29 15:04 | NM ---
WHOLE BODY BONE SCAN: 04/29/2018 HISTORY: Left renal cell carcinoma, post nephrectomy, diagnosed 15 years ago. Metastatic disease. COMPARISON: Study from 09/22/2017, as well as recent CT chest, abdomen, and pelvis obtained on today's date. RADIOPHARMACEUTICAL: Technetium 99m labeled MDP 29.2 millicuries IV. VIEWS OBTAINED: Anterior and posterior whole body. FINDINGS: As noted on the prior exam, there is heterogeneous but intense uptake of radiotracer seen within the proximal left humerus, with a smaller focus of increased uptake seen within the distal diaphysis of t he left humerus, overall similar to the prior exam and likely related to metastatic lesions. New lyt ic lesion seen within the right hemipelvis on recent CT scan examination demonstrates faint increased uptake of radiotracer within the right iliac bone, in the supra-acetabular region, on the right, as well as adjacent to the right sacroiliac joint, which was not seen on the prior exam. Focal areas of uptake are seen overlying the central and right lateral aspect of the mandible, which were not seen on the prior exam. While metastatic lesions cannot be entirely excluded, findings are likely attributable to periodontal disease. Minimal eccentric areas of uptake are seen within the thoracic spine, as well as the lower lumbar spi ne, which are probably degenerative in origin. There is mild increased uptake seen within each shoulder and bilateral knees, and involving the ankle s and feet, in a degenerative type pattern. Normal activity is seen in the region of the right kidney. There is absent uptake of radiotracer in the region of the left kidney, related to the patient's history of left nephrectomy. IMPRESSION: 1. Metastatic lesions involving the right iliac bone, adjacent to the right sacroiliac joint, as wel l as in the supra-acetabular region, on the right. 2. Stable metastatic lesions involving the proximal as well as distal left humerus. 3. Focal areas of increased uptake overlying the mandible, probably attributable to periodontal dise ase, with metastatic disease a possibility but thought less likely. The above findings were discussed with Dr. Jordan, including the findings on the CT exam on 04/29/19 19, at 1427 hours. CODE CR POS: [facility]
== END 2018-04-29 09:43 | disposition home or self-care (01) ==
LOC: NM 09:42
PROVIDERS: ATTEND Internal Medicine Hematology & Oncology
DX: C64.2 Malignant neoplasm of left kidney, except renal pelvis (principal); R91.8 Other nonspecific abnormal finding of lung field; N28.9 Disorder of kidney and ureter, unspecified; K76.9 Liver disease, unspecified; D73.89 Other diseases of spleen; R22.1 Localized swelling, mass and lump, neck; K86.9 Disease of pancreas, unspecified; M89.9 Disorder of bone, unspecified
CPT/HCPCS: 71260; 74177; 78306; 82565; A9503

== ENCOUNTER 2018-07-31 10:15 | Outpatient (CLI) | payer MEDICARE ==
[2018-07-31] MEDS ORDERED: Iopamidol 370 76% 100 ML VIAL ONE (11:00)
--- NOTE | 2018-07-31 13:20 | CT ---
CTA CHEST WITH CONTRAST: Multiple axial tomograms were obtained through the chest following an angio protocol with multiplanar reconstruction and 3D post processing. INDICATION: Shortness of breath. History of renal cell cancer with left nephrectomy and left upper lung lobectom y. COMPARISON: Comparison is made to CT chest 04/29/2018. FINDINGS: The pulmonary arteries show adequate opacification. No evidence of pulmonary embolus. The thoracic aorta is unremarkable with no evidence of dissection. The lungs show bilateral pleural effusions which have occurred since the prior exam. The mass densit y along the mediastinal border left suprahilar region is again noted. This measures 2.0 cm and does not appear significantly changed. There is a nodule in the right lower lobe measuring 1.2 to 1.3 cm, unchanged. There are multiple other small pulmonary nodules which appear stable from the prior exam . Osseous structures unremarkable. Images through the upper abdomen show low-density lesions in the liver which are stable in appearance. IMPRESSION: 1. No evidence of pulmonary embolus. 2. Pulmonary nodules and left suprahilar mass lesion appear stable. No evidence of acute lung infil trate. There are small bilateral effusions which are new when compared to the prior study. POS: CYNDY
== END 2018-07-31 10:16 | disposition home or self-care (01) ==
LOC: CT 10:15
PROVIDERS: ATTEND Internal Medicine Hematology & Oncology
DX: J90 Pleural effusion, not elsewhere classified (principal); R06.02 Shortness of breath; R91.8 Other nonspecific abnormal finding of lung field
CPT/HCPCS: 71275; 80053; 84436; 84443; Q9967

== ENCOUNTER 2018-08-26 10:43 | Outpatient (CLI) | payer MEDICARE ==
--- NOTE | 2018-08-26 12:19 | MRI ---
Brain MRI with and without contrast: 08/26/2018 COMPARISON: 03/21/2017 at [facility] TECHNIQUE: Multiplanar multisequence MR imaging of the brain is obtained with and without contrast FINDINGS: The diffusion weighted imaging demonstrates no evidence for acute infarction. There is an intra-axial mass within the superior medial left frontal lobe measuring 2.5 x 2.1 cm. Thi s lesion is new when compared to the prior examination and there is a large amount of associated vasogenic edema involving the subcortical, deep, and periventricular white matter throughout the left frontal lobe. This exerts mass effect on the frontal horn of the left lateral ventricle and there is midline shift superior to the lateral ventricles measuring 9-10 mm. This lesion demonstrates roche ing artifact on gradient echo imaging suggesting internal hemorrhage and the lesion demonstrates avid postcontrast enhancement. There is no enhancing lesion identified within the brainstem. No discrete enhancing lesion is noted w ithin the left cerebellar hemisphere. There is a new enhancing 4 mm lesion within the posterior/medial aspect of the right cerebellar hemis phere. There is a new enhancing 4 mm lesion within the inferior medial posterior right temporal lobe. There is a new enhancing medial right occipital lesion measuring 3 mm. There is an additional t iny enhancing occipital lobe lesion on the right measuring 3 mm. The imaged paranasal sinuses and mastoid air cells are well aerated. Arterial flow voids at the axial level of the skull base appear grossly unremarkable on the T2-weight ed imaging. IMPRESSION: Interval development of intracranial metastatic disease. This includes a dominant left f rontal lobe lesion measuring 2.5 cm with associated midline shift, mass effect, and extensive vasogenic edema. CODE T
== END 2018-08-26 10:44 | disposition home or self-care (01) ==
LOC: MRI 10:43
PROVIDERS: ATTEND Internal Medicine Hematology & Oncology
DX: C64.2 Malignant neoplasm of left kidney, except renal pelvis (principal); C79.31 Secondary malignant neoplasm of brain; R60.0 Localized edema
CPT/HCPCS: 70553

== ENCOUNTER 2018-08-31 10:00 | Outpatient (CLI) | payer MEDICARE ==
--- NOTE | 2018-08-31 12:01 | CT ---
CT CHEST WITH IV CONTRAST CT ABDOMEN WITH IV CONTRAST CT PELVIS WITH IV CONTRAST: HISTORY: Renal cell carcinoma with metastatic disease. Thyroidectomy, hysterectomy, left upper lung l obe resection, left kidney resection. COMPARISON: 04/29/2018. 07/31/2018. FINDINGS: Multiple bilateral pulmonary nodules are again seen. These are stable in number. Some of the nodules appear smaller the largest pulmonary nodule, in the left upper lobe, adjacent to the mediastinum currently measures 2 cm in largest dimension compared to 2.2 cm on previous study. No mediastinal hilar or axillary mass or lymphadenopathy seen. No pleural or pericardial effusions ar e noted. Gallbladder masses and calcifications again seen. Multiple small hypodense lesions in the liver are s table. No new liver lesions are seen. The spleen and left adrenal gland are stable, including the low-density lesions in the spleen. There is a new 18 mm right adrenal nodule. A peripherally enhancing mass measuring 2.2 x 2.7 x 2.3 cm is seen in the body of the pancreas. Right renal masses are better evaluated on the previous study due to a different phase of enhancement compared to the current exam. However the masses in the right kidney appears stable. No free air or lymphadenopathy seen in the abdomen or pelvis. There is a small amount of free fluid i n the pelvis. The small bowel loops are not abnormally dilated. The lipoma in the abductor musculature of the right pelvis is again seen. The patient is post thyroidectomy, left nephrectomy and hysterectomy. There are multiple small new lytic lesions in the thoracolumbar spine. The lytic lesions in the right pelvic bones demonstrate interval increase in size and cortical disruption. IMPRESSION: Interval worsening of osseous metastatic disease and development of right adrenal nodule and pancreatic mass since previous exam.
--- NOTE | 2018-08-31 13:55 | NM ---
WHOLE BODY BONE SCAN: HISTORY: Malignant neoplasm of left kidney, except renal pelvis RADIOPHARMACEUTICAL: 30 mCi technetium 99m-MDP injected intravenously COMPARISON: 04/29/2018 CORRELATION: CT chest, abdomen and pelvis of same date FINDINGS: Increased uptake in the left humerus, and right pelvis consistent with metastatic disease are again s een. There are new foci of increased uptake consistent with metastatic disease in the thoracolumbar spine and proximal diaphysis of the right femur. There scattered degenerative activity in the appendicular skeleton. Periodontal disease in the mandib le is again seen. Tracer excretion through the right kidney is within normal limits. The patient is post left nephrecto my IMPRESSION: Interval worsening of osseous metastatic disease since 04/29/2018.
== END 2018-08-31 10:01 | disposition home or self-care (01) ==
LOC: CT 10:00
PROVIDERS: ATTEND Internal Medicine Hematology & Oncology
DX: C64.2 Malignant neoplasm of left kidney, except renal pelvis (principal); C79.51 Secondary malignant neoplasm of bone; E27.8 Other specified disorders of adrenal gland; K86.89 Other specified diseases of pancreas
CPT/HCPCS: 71260; 74177; 78306; A9503

== ENCOUNTER 2018-09-01 11:38 | Outpatient (CLI) | payer MEDICARE ==
--- NOTE | 2018-09-01 13:56 | RAD ---
RIGHT HIP TWO VIEWS: RIGHT FEMUR TWO VIEWS: 09/01/18 HISTORY: Left kidney cancer, right hip pain, abnormal findings on bone scan of 08/31/18. FINDINGS/IMPRESSION: Comparison is made with the right femur x-rays of 08/29/18. A sclerotic focus in the neck of the right humerus is again seen and stable, consistent with bone isl and. In the proximal shaft of the right femur, there are a few tiny probably lytic lesions suspicious for metastatic disease. These were not definitely seen on the previous study. Confirmation with MRI would be helpful. POS: CYNDY
== END 2018-09-01 11:39 | disposition home or self-care (01) ==
LOC: BICRAD 11:38
PROVIDERS: ATTEND Internal Medicine Hematology & Oncology
DX: M79.651 Pain in right thigh (principal); M25.551 Pain in right hip; C64.2 Malignant neoplasm of left kidney, except renal pelvis; R93.7 Abnormal findings on diagnostic imaging of other parts of musculoskeletal system